=== PATIENT | female | born 1995 | race Caucasian/White ===

== ENCOUNTER 2019-10-15 17:56 | Emergency (ER) | payer OTHER ==
[2019-10-15 18:33] LABS: BASOPHILS % (AUTO) 0.5 %; EOSINOPHILS # (AUTO) 0.1 10^3/uL (0.0-0.7); EOSINOPHILS % (AUTO) 1.6 %; HGB - HEMOGLOBIN 12.5 g/dL (12.0-16.0); LYMPHOCYTES # (AUTO) 2.8 10^3/uL (1.5-3.5); LYMPHOCYTES % (AUTO) 36.8 %; MEAN CORPUSCULAR HEMOGLOBIN 29.4 pg (27.0-31.0); MEAN CORPUSCULAR HGB CONC 34.2 g/dL (32.0-36.0); MEAN CORPUSCULAR VOLUME 85.9 fL (81.0-99.0); MEAN PLATELET VOLUME 10.6 fL (7.9-10.8); MONOCYTES # (AUTO) 0.6 10^3/uL (0.0-1.0); NEUTROPHILS # (AUTO) 3.9 10^3/uL (1.5-6.6); NEUTROPHILS % (AUTO) 52.6 %; PLT - PLATELET COUNT 260 10^3/uL (130-450); RED BLOOD COUNT 4.25 10^6/uL (4.20-5.40); RED CELL DISTRIBUTION WIDTH 12.2 % (12.0-15.0); WHITE BLOOD COUNT 7.5 x10^3/uL (4.8-10.8)
[2019-10-15 18:49] LABS: ALBUMIN 3.9 g/dL (3.2-5.5); ALBUMIN/GLOBULIN RATIO 1.1 (1.0-2.2); BILIRUBIN,TOTAL 0.7 mg/dL (0.2-1.0); CALCIUM 9.2 mg/dL (8.5-10.3); CREATININE 0.7 mg/dL (0.4-1.0); TOTAL PROTEIN 7.4 g/dL (6.7-8.2)
--- NOTE | 2019-10-15 19:19 | ED Physician Documentation ---
PD HPI ABD PAIN - Stated complaint Stated Complaint: ABD PX/BLOODY STOOL - Chief complaint Chief Complaint: Abd Pain - History obtained from History obtained from: Patient - History of Present Illness Timing - onset: How many days ago (2-3) Timing - details: Still present Pain level max: 9 Pain level now: 7 Quality: Cramping, Sharp, Pain Location: RUQ, LLQ Radiation: Left flank Worsened by: Palpation Associated symptoms: Nausea, Vomiting, Hematochezia. No: Dysuria, Hematuria, Chest pain, Near syncope / syncope, Vaginal bleeding Similar symptoms before: Diagnosis (Colitis) Recently seen: Emergency Dept (August 2019) - Additional information Additional information: 23-year-old female comes in today with chief complaint of left-sided abdominal pain which radiates to her back With nausea and vomiting since August. She also notes that she had bloody stool this afternoon x 1. She feels easily fatigued, losing some weight she reports subjective fever and chills with nausea dn vomiting over the past few days. Patient reports she has been having runny stools for about 3-4 times a day but denies blood in her stool except for the last 2 days. Patient denies chest pain, dyspnea, lightheadedness. Patient was evaluated in the emergency department in [place] on 08/29/2019 and was diagnosed with colitis and discharged home with antibiotic medication. She was seen at the [facility] emergency department again on October 12, 2019 for the same. She was sent home with dicyclomine, tramadol, Zofran. She was told her to follow-up with GI doctor and she has [place] all [place] base and is just waiting for the referral doctor to call and make an appointment. Review of Systems Ten Systems: 10 systems reviewed and negative Constitutional: reports: Chills, Sweats (Mainly at night x 2-3 days.). denies: Fever Eyes: denies: Loss of vision, Decreased vision Ears: denies: Loss of hearing, Ear pain, Drainage/discharge Nose: denies: Rhinorrhea / runny nose, Congestion, Sinus pressure / pain Throat: denies: Oral lesions / sores, Sore throat, Swollen tonsils Cardiac: denies: Chest pain / pressure, Palpitations, Pedal edema Respiratory: denies: Dyspnea, Cough, Hemoptysis, Wheezing GI: reports: Abdominal Pain, Nausea, Vomiting, Diarrhea, Bloody / black stool. denies: Abdominal Swelling, Hematemesis : denies: Dysuria, Frequency, Incontinent, Hematuria Skin: denies: Rash, Lesions Neurologic: denies: Generalized weakness, Difficulty speaking, Seizure, Confused, Headache PD PAST MEDICAL HISTORY - Past Medical History Past Medical History: No Cardiovascular: None Respiratory: None Neuro: None Endocrine/Autoimmune: None GI: None [employer]: None : None HEENT: None Psych: None Musculoskeletal: None Derm: None - Past Surgical History Past Surgical History: No - Allergies Allergies/Adverse Reactions: Allergies Allergy/AdvReac Type Severity Reaction Status Date / Time No Known Drug Allergies Allergy Verified 10/15/19 18:09 - Social History Does the pt smoke?: No Smoking Status: Never smoker - Immunizations Immunizations are current?: Yes - POLST Patient has POLST: No PD ED PE NORMAL - General General: Alert and oriented X 3, Well developed/nourished. 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 No: Distended, Bruising Results - Vitals Vitals: Vital Signs - 24 hr 10/15/19 10/15/19 18:05 20:04 Temperature 36.3 C L Heart Rate 92 60 Respiratory 20 18 Rate Blood Pressure 111/73 108/70 O2 Saturation 99 100 Oxygen O2 Source Room air - Labs Labs: Laboratory Tests 10/15/19 10/15/19 10/15/19 18:28 18:28 18:28 WBC 7.5 RBC 4.25 Hgb 12.5 Hct 36.5 L MCV 85.9 MCH 29.4 MCHC 34.2 RDW 12.2 Plt Count 260 MPV 10.6 Neut # (Auto) 3.9 Lymph # (Auto) 2.8 [place] # (Auto) 0.6 Eos # (Auto) 0.1 Baso # (Auto) 0.0 Absolute Nucleated RBC 0.00 Nucleated RBC % 0.0 Sodium 136 Potassium 3.4 L Chloride 101 Carbon Dioxide 28 Anion Gap 7.0 BUN 12 Creatinine 0.7 Estimated GFR (MDRD) 104 Glucose 97 Lactic Acid Calcium 9.2 Total Bilirubin 0.7 AST 19 ALT 16 Alkaline Phosphatase 40 L Lactate Dehydrogenase 131 Total Protein 7.4 Albumin 3.9 Globulin 3.5 Albumin/Globulin Ratio 1.1 Lipase 29 Urine Color Urine Clarity Urine pH Ur Specific [place] Urine Protein Urine Glucose (UA) Urine Ketones Urine Occult Blood Urine Nitrite Urine Bilirubin Urine Urobilinogen Ur Leukocyte Esterase Ur Microscopic Review Urine Culture Comments Urine HCG, Qual 10/15/19 10/15/19 10/15/19 19:45 19:45 20:55 WBC RBC Hgb Hct MCV MCH MCHC RDW Plt Count MPV Neut # (Auto) Lymph # (Auto) [place] # (Auto) Eos # (Auto) Baso # (Auto) Absolute Nucleated RBC Nucleated RBC % Sodium Potassium Chloride Carbon Dioxide Anion Gap BUN Creatinine Estimated GFR (MDRD) Glucose Lactic Acid 1.1 Calcium Total Bilirubin AST ALT Alkaline Phosphatase Lactate Dehydrogenase Total Protein Albumin Globulin Albumin/Globulin Ratio Lipase Urine Color YELLOW Urine Clarity CLEAR Urine pH 7.0 Ur Specific [place] 1.010 1.010 Urine Protein NEGATIVE Urine Glucose (UA) NEGATIVE Urine Ketones NEGATIVE Urine Occult Blood NEGATIVE Urine Nitrite NEGATIVE Urine Bilirubin NEGATIVE Urine Urobilinogen 0.2 (NORMAL) Ur Leukocyte Esterase NEGATIVE Ur Microscopic Review NOT INDICATED Urine Culture Comments NOT INDICATED Urine HCG, Qual NEGATIVE PD MEDICAL DECISION MAKING - ED course Complexity details: reviewed old records, reviewed results, re-evaluated patient, considered differential (colitis, ulcerative colitis, IBS, calculus of kidney, perforated bowel, UTI.), d/w patient ED course: 24-year-old female who was evaluated in [place] ED on August 29, 2011 and again on October 12, 2019 diagnosed with colitis. She was discharged home with dicyclomine, tramadol, Zofran with instructions on how to take it. Her blood test today come back without any leukocytosis. Unremarkable chemistry and lipase, normal lactic acid. Urine test does not show any urine nitrate or leucocyte esterase. Review of old records and CT scan from 10/12/2019 from [facility] ED showed colonic diverticulosis without definite acute diverticulitis and mild segmental wall thickening of the descending colon suggestive of mild colitis. These results were discussed with the patient. The patient is advised to use the prescription medications cramping, tramadol for severe pain, Zofran for nausea, and [id number] Tylenol for pain control. . The patient is advised follow-up with primary care physician tomorrow. She has already contacted her PCP and is awaiting a referral for gastroenterology. Departure - Departure Disposition: Home, Self Care Clinical Impression: Colitis Condition: Good Instructions: ED Colitis Ulcerative Comments: You have been diagnosed with coloitis and lower abdominal pain. Your lab work for CBC, chemistry, lipase, lactate, urine were unremarkable. You were treated with pain medication Dilaudid, IV fluid and Zofran for your symptoms. I reviewed the paperwork from your recent emergency room visit in [place], including the cat scan of your abdomen. Take your medications, Bentyl, Tramadol, and Zofran as directed. Do not drink alcohol, drive or operate heavy equipment while taking this. You can take over the counter Tylenol for discomfort as well. Follow up with your primary care provider in 2-3 days. Let them know you were seen in the ED again for the same thing again and see if you can get in and be seen sooner. Return to the Ed if you have any new, worsening, or concerning symptoms, such as (chest pain, difficulty breathing, unable to tolerate fluids, fever, or any other acute concerns.)
[2019-10-15] MEDS ORDERED: ONDANSETRON 4 MG/2 ML VIAL IVP STA (19:31)
[2019-10-15] MEDS ORDERED: HYDROmorphone 1 MG/ML CARPUJECT IVP STA (19:31)
[2019-10-15 19:50] LABS: BILIRUBIN,URINE NEGATIVE (NEGATIVE); CLARITY,URINE CLEAR (CLEAR); GLUCOSE, URINE (UA) NEGATIVE (NEGATIVE); KETONES,URINE (UA) NEGATIVE (NEGATIVE); LEUKOCYTE ESTERASE, URINE NEGATIVE (NEGATIVE); NITRITE,URINE NEGATIVE (NEGATIVE); OCCULT BLOOD,URINE NEGATIVE (NEGATIVE); PROTEIN,URINE NEGATIVE (NEGATIVE); UROBILINOGEN,URINE 0.2 (NORMAL) E.U./dL (NORMAL)
[2019-10-15 19:52] LABS: HCG UR QUAL NEGATIVE
[2019-10-15] MEDS ORDERED: SODIUM CHLORIDE 0.9% 1,000 ML IV ONE (19:57)
[2019-10-15 21:44] VITALS: BP 99/61
== END 2019-10-15 21:43 | disposition home or self-care (01) ==
LOC: ED 17:56
DX: K52.9 Noninfective gastroenteritis and colitis, unspecified (principal)
CPT/HCPCS: 36415; 80053; 81003; 81025; 83605; 83615; 83690; 85025; 96361; 96374; 96375; 99283; 99284; J1170; 81001; 87086

== ENCOUNTER 2022-02-26 08:00 | Outpatient (CLI) | payer OTHER ==
[2022-02-26 23:05] LABS: CHLAMYDIA TRACHOMATIS DNA NEGATIVE (NEGATIVE); NEISSERIA GONORRHOEAE DNA NEGATIVE (NEGATIVE); TRICHOMONAS VAGINALIS DNA NEGATIVE (NEGATIVE)
== END 2022-02-26 23:59 | disposition home or self-care (01) ==
LOC: LAB.N 08:00
PROVIDERS: ATTEND Physician Assistant Medical
DX: Z11.3 Encounter for screening for infections with a predominantly sexual mode of transmission (principal)
CPT/HCPCS: 87491; 87591; 87661

== ENCOUNTER 2022-03-01 11:55 | Outpatient (CLI) | payer OTHER ==
[2022-03-03 04:08] LABS: HCV AB <0.1 s/co ratio (0.0-0.9)
[2022-03-03 06:09] LABS: HIV SCREEN 4TH GENERATION Non Reactive (Non Reactive); RPR Non Reactive (Non Reactive)
== END 2022-03-01 11:56 | disposition home or self-care (01) ==
LOC: LAB.N 11:55
PROVIDERS: ATTEND Physician Assistant Medical
DX: Z11.3 Encounter for screening for infections with a predominantly sexual mode of transmission (principal)
CPT/HCPCS: 81599; 86592; 86694; 86695; 86696; 86803; 87389